=== PATIENT | female | born 1940 | race Caucasian/White ===

== ENCOUNTER → 2018-09-01 | Outpatient (CLI) | payer MEDICARE, OTHER | LOC: M.RAD 09:40 | DX: Z12.31 Encounter for screening mammogram for malignant neoplasm of breast (principal) ==

== ENCOUNTER → 2019-09-10 | Outpatient (CLI) | payer MEDICARE, OTHER | LOC: M.RAD 09:17 | DX: Z12.31 Encounter for screening mammogram for malignant neoplasm of breast (principal) ==

== ENCOUNTER 2020-08-19 07:48 | Emergency (ER) | payer MEDICARE, OTHER ==
[~2020-08-19] VITALS: Ht 157.5 cm; Wt 76.2 kg
[2020-08-19] MEDS ORDERED: VASOTEC5 MG PO (07:59)
[2020-08-19] MEDS ORDERED: FISH OIL 1,0001 EAC9 PO (08:20)
[2020-08-19] MEDS ORDERED: ASA81BEC PO (08:20)
[2020-08-19] MEDS ORDERED: VITAMIN E1000 UNIT PO (08:20)
[2020-08-19] MEDS ORDERED: SIMVASTATIN40 MG PO (08:21)
[2020-08-19] MEDS ORDERED: COQ1050 MG PO (08:21)
[2020-08-19] MEDS ORDERED: VITAMIN D3250 MC1 PO (08:21)
[2020-08-19] MEDS ORDERED: MAGNESIUM250 M1 PO (08:21)
[2020-08-19] MEDS ORDERED: VASOTEC 2.5MG2.5 MG PO (08:21)
[2020-08-19] MEDS ORDERED: FOSAMAX 70 MG T70 MG PO (08:22)
[2020-08-19 08:29] LABS: ABSOLUTE BASOPHILS 0.1 thou/uL (0.0-0.2); ABSOLUTE EOSINOPHILS 0.3 thou/uL (0.0-0.7); ABSOLUTE LYMPHOCYTES 1.3 thou/uL (0.8-5.3); ABSOLUTE MONOCYTES 0.5 thou/uL (0.0-1.2); ABSOLUTE NEUTROPHILS 2.2 thou/uL (1.6-8.1); BASOPHILS 1.8 %; EOSINOPHILS 7.1 %; HEMATOCRIT 38.4 % (37.0-47.0); HEMOGLOBIN 13.2 gm/dL (12.0-15.0); LYMPHOCYTES 29.6 %; MCH 32.6 pg (26.0-34.0); MCHC 34.5 g/dL (28.0-37.0); MCV 94.7 fL (80.0-100.0); MONOCYTES 10.3 %; MPV 7.4 fl. (7.2-11.1); NUCLEATED RBCS 0 /100WBC; PLATELET COUNT* 164 thou/uL (150-400); POLYS 51.2 %; RBC 4.05 mil/uL (4.20-5.00); WBC 4.4 thou/uL (4.0-11.0)
[2020-08-19 08:39] LABS: CALCIUM 9.1 mg/dL (8.5-10.1); POTASSIUM 3.9 mmol/L (3.5-5.1)
[2020-08-19 08:55] LABS: ALBUMIN 3.8 g/dL (3.4-5.0); TOTAL BILIRUBIN 0.6 mg/dL (<0.1-1.0); TOTAL PROTEIN 6.9 g/dL (6.4-8.2)
[2020-08-19 09:07] VITALS: BP 154/63
--- NOTE | 2020-08-19 13:57 | EKG ---
[place] [address] ELECTROCARDIOGRAM REPORT Name: DEVEN HUTTON Room: [facility]#: [id number] Admission: 08/19/20 Attend Phys: Discharge: 08/19/20 Date of : 38 Date of Service: 08/19/2007 Report #: [id number] THIS REPORT FOR: //name// [facility] ED Test Date: 2020-08-19 Test Time: 08:07:28 Pat Name: DEVEN HUTTON Department: Room: Gender: F Drawing Tender: : 1940 Requested By: Benedicto Lopez Order Number: [id number] MD: Varun Acosta Measurements Intervals Edgar Rate: 85 P: 1 NV: 233 QRS: 18 QRSD: 96 T: -5 QT: 401 QTc: 477 Interpretive Statements Sinus rhythm Prolonged NV interval Borderline T abnormalities, inferior leads Baseline wander in lead(s) II No previous ECG available for comparison Electronically Signed On 08-19-2020 13:56:59 CDT by Varun Acosta [email or web address] <ELECTRONICALLY SIGNED> By: Varun Acosta MD, [facility] 08/19/20 [id number] Varun Acosta MD, [facility] /EPI
== END 2020-08-19 09:08 | disposition home or self-care (01) ==
LOC: M.ERS 07:48
PROVIDERS: Emergency Medicine Emergency Medical Services
DX: I10 Essential (primary) hypertension (principal); Z88.0 Allergy status to penicillin; Z88.6 Allergy status to analgesic agent; Z88.8 Allergy status to other drugs, medicaments and biological substances

== ENCOUNTER → 2020-09-12 | Outpatient (CLI) | payer MEDICARE, OTHER ==
[~2020-09-12] MED LIST: ASA81BEC PO; COQ1050 MG PO; FISH OIL 1,0001 EAC9 PO; FOSAMAX 70 MG T70 MG PO; MAGNESIUM250 M1 PO; SIMVASTATIN40 MG PO; VASOTEC 2.5MG2.5 MG PO; VASOTEC5 MG PO; VITAMIN D3250 MC1 PO; VITAMIN E1000 UNIT PO
== END ==
LOC: M.RAD 09:41
PROVIDERS: ATTEND Family Medicine
DX: Z12.31 Encounter for screening mammogram for malignant neoplasm of breast (principal)

== ENCOUNTER → 2021-06-05 | Outpatient (CLI) | payer MEDICARE, OTHER | LOC: M.PC 08:25 | PROVIDERS: ATTEND Physical Medicine & Rehabilitation | DX: I70.202 Unspecified atherosclerosis of native arteries of extremities, left leg (principal); M25.562 Pain in left knee; M25.512 Pain in left shoulder; G62.9 Polyneuropathy, unspecified; I25.2 Old myocardial infarction; I10 Essential (primary) hypertension; Z96.652 Presence of left artificial knee joint; Z88.0 Allergy status to penicillin; Z88.1 Allergy status to other antibiotic agents ==

== ENCOUNTER → 2021-06-19 | Outpatient (CLI) | payer MEDICARE, OTHER | END | disposition home or self-care (01) | LOC: M.PC 10:10 | PROVIDERS: ATTEND Physical Medicine & Rehabilitation | DX: M25.562 Pain in left knee (principal); I10 Essential (primary) hypertension; I25.2 Old myocardial infarction; M79.2 Neuralgia and neuritis, unspecified; Z96.652 Presence of left artificial knee joint; Z98.890 Other specified postprocedural states; Z79.899 Other long term (current) drug therapy; Z88.0 Allergy status to penicillin; Z88.8 Allergy status to other drugs, medicaments and biological substances ==

== ENCOUNTER → 2021-09-12 | Outpatient (CLI) | payer MEDICARE, OTHER | LOC: M.RAD 10:00 | PROVIDERS: ATTEND Family Medicine | DX: Z12.31 Encounter for screening mammogram for malignant neoplasm of breast (principal) ==